=== PATIENT | female | born 1995 ===

== ENCOUNTER 2022-01-08 11:17 | Inpatient (IN) ==
[2022-01-08] MEDS ORDERED: Famotidine 20 MG/2 ML VIAL IVP PRN (13:33)
[2022-01-08] MEDS ORDERED: Azithromycin 500 MG in 0.9 % Sodium Chloride 250 ML IVPB PRN (13:33)
[2022-01-08] MEDS ORDERED: *HR* Nalbuphine 10 MG/ML AMPUL IV PRN (13:33)
[2022-01-08] MEDS ORDERED: Ondansetron 4 MG/2 ML VIAL IVP PRN (13:33)
[2022-01-08] MEDS ORDERED: Metoclopramide 10 MG/2 ML VIAL IVP PRN (13:33)
[2022-01-08] MEDS ORDERED: Naloxone 0.4 MG/ML INJ IVP PRN (13:33)
[2022-01-08] MEDS ORDERED: Penicillin G Potassium 5,000,000 UNIT in 0.9 % Sodium Chloride Mini Bag 100 ML IVPB ONE (13:36)
[2022-01-08] MEDS ORDERED: miSOPROStoL 25 MCG TABLET PO ONE (13:39)
[2022-01-08] MEDS: Ringers Solution, Lactated 1,000 ML IVC SCH ×2 (13:55→22:15)
[2022-01-08 14:36] LABS: Amphetamine Screen,Urine Negative ng/mL (Cutoff=1000); Barbiturate Screen,Urine Negative ng/mL (Cutoff=200); Benzodiazepines Screen,Urine Negative ng/mL (Cutoff=200); Cannabinoid Screen,Urine Negative ng/mL (Cutoff = 50); Cocaine Screen,Urine Negative ng/mL (Cutoff= 300); Opiate Screen,Urine Negative ng/mL (Cutoff=300); Phencyclidine Screen,Urine Negative ng/mL (Cutoff=25)
[2022-01-08 15:23] LABS: Basophils % 0.3 %; Eosinophils # 0.1 K/mcL (0.0-0.6); Eosinophils % 1.9 %; Hematocrit 38.1 % (35.3-44.9); Hemoglobin 12.4 g/dL (11.5-15.4); Immature Granulocytes % 0.4 % (0-4); Lymphocytes # 1.7 K/mcL (0.6-4.6); Lymphocytes % 22.7 %; Mean Corpuscular HGB Conc 32.5 g/dL (31.6-35.5); Mean Corpuscular Hemoglobin 29.2 pg (28.0-33.3); Mean Corpuscular Volume 89.6 fL (83.0-100.0); Mean Platelet Volume 12.3 fL (9.4-12.4); Monocytes # 0.4 K/mcL (0.0-1.3); Monocytes % 5.5 %; Neutrophils # 5.2 K/mcL (1.6-8.9); Platelet Count 223 K/mcL (140-400); Red Blood Count 4.25 M/mcL (3.82-4.97); Red Cell Distribution Width 14.4 % (11.5-14.5); Segmented Neutrophils % 69.2 %; White Blood Count 7.4 K/mcL (4.3-11.1)
[2022-01-08] MEDS ORDERED: EPHEDrine 50 MG/ML VIAL IVP PRN (15:27)
[2022-01-08] MEDS ORDERED: *HR* FentaNYL (PF) 100 MCG/2 ML VIAL EP ONE (15:27)
[2022-01-08] MEDS ORDERED: Ropivacaine/PF 0.2% 20 ML VIAL EP ONE (15:27)
[2022-01-08] MEDS ORDERED: Epidural Premix (fent/bupiv) 110 ML EP SCH (15:30)
[2022-01-08 16:12] LABS: Influenza A PCR Negative (Negative); Influenza B PCR Negative (Negative); Resp. Syncytial Virus PCR Negative (Negative)
[2022-01-08 16:36] LABS: SARS-CoV-2 by PCR (In House) Negative (Negative)
[2022-01-08] MEDS: Penicillin G Potassium 2,500,000 UNIT/105 ML MLS IVPB SCH ×2 (17:56→22:15)
[2022-01-08 18:08] LABS: Creatinine,Urine 112 mg/dL; Protein/Creatinine Ratio,Urine 0.28 mg/mg (0.00-0.20)
[2022-01-08 18:13] LABS: Alanine Aminotransferase 8 Units/L (7-52); Aspartate Amino Transferase 15 Units/L (13-39); BUN/Creatinine Ratio 15 (6-26); Blood Urea Nitrogen 9 mg/dL (6-20); Lactate Dehydrogenase 174 Units/L (140-271); Uric Acid 4.2 mg/dL (2.3-7.6); eGFR For African Americans > 60 (> 60); eGFR For Non-African Americans > 60 (> 60)
[2022-01-08] MEDS ORDERED: miSOPROStoL 25 MCG TABLET PO PRN (19:18)
[2022-01-09] MEDS ORDERED: Oxytocin 30 UNIT/503 ML BAG IVC ONE (00:03)
[2022-01-09] MEDS ORDERED: Oxytocin 30 UNIT/503 ML BAG IVC SCH ×2 (00:15→10:30)
[2022-01-09] MEDS: Penicillin G Potassium 2,500,000 UNIT/105 ML MLS IVPB SCH (02:34)
[2022-01-09] MEDS ORDERED: Ropivacaine/PF 0.2% 20 ML VIAL ONE (02:36)
[2022-01-09] MEDS ORDERED: *HR* FentaNYL (PF) 100 MCG/2 ML VIAL ONE (02:36)
[2022-01-09] MEDS ORDERED: Lidocaine -MPF 1% 5 ML AMPUL ONE (03:02)
[2022-01-09] MEDS: Ringers Solution, Lactated 1,000 ML IVC SCH (03:08)
[2022-01-09] MEDS ORDERED: *HR* HYDROmorphone PF 0.5 MG/0.5 ML SYRINGE IVP PRN (07:43)
[2022-01-09] MEDS ORDERED: *HR* Labetalol 20 MG/4 ML SYRINGE IVP PRN (07:43)
[2022-01-09] MEDS ORDERED: Ondansetron 4 MG/2 ML VIAL IVP PRN ×2 (07:43→10:30)
[2022-01-09] MEDS ORDERED: Ringers Solution, Lactated 1,000 ML IVC SCH (07:45)
[2022-01-09] MEDS: Acetaminophen 325 MG TABLET PO SCH ×2 (13:51→20:40)
[2022-01-09] MEDS: Ibuprofen 600 MG TABLET PO SCH ×2 (13:51→20:39)
[2022-01-09] MEDS: cephALEXin 500 MG CAPSULE PO SCH ×2 (16:02→20:40)
[2022-01-09] MEDS: *HR* OxyCODONE Immed Rel 5 MG TABLET PO PRN ×2 (16:17→21:35)
[2022-01-09] MEDS: Simethicone 80 MG TAB.CHEW PO PRN ×2 (17:11→22:45)
[2022-01-09] MEDS: metroNIDAZOLE 500 MG TABLET PO SCH (20:40)
[2022-01-10] MEDS: Acetaminophen 325 MG TABLET PO SCH ×2 (04:29→07:18)
[2022-01-10] MEDS: Ibuprofen 600 MG TABLET PO SCH ×2 (04:30→07:19)
[2022-01-10 05:04] LABS: Basophils % 0.3 %; Eosinophils # 0.1 K/mcL (0.0-0.6); Eosinophils % 0.8 %; Hematocrit 29.5 % (35.3-44.9); Immature Granulocytes % 0.3 % (0-4); Lymphocytes % 22.4 %; Mean Corpuscular HGB Conc 33.2 g/dL (31.6-35.5); Mean Corpuscular Hemoglobin 29.9 pg (28.0-33.3); Mean Corpuscular Volume 89.9 fL (83.0-100.0); Mean Platelet Volume 11.3 fL (9.4-12.4); Monocytes # 0.5 K/mcL (0.0-1.3); Monocytes % 5.8 %; Neutrophils # 6.4 K/mcL (1.6-8.9); Platelet Count 146 K/mcL (140-400); Red Blood Count 3.28 M/mcL (3.82-4.97); Red Cell Distribution Width 14.6 % (11.5-14.5); Segmented Neutrophils % 70.4 %; White Blood Count 9.1 K/mcL (4.3-11.1)
[2022-01-10 05:05] LABS: Hemoglobin 9.8 g/dL (11.5-15.4)
[2022-01-10 05:18] VITALS: O2SAT 98
[2022-01-10 07:11] VITALS: BP 105/57; PULSE 75; TEMP 98.3
[2022-01-10] MEDS: cephALEXin 500 MG CAPSULE PO SCH ×2 (07:18→08:32)
[2022-01-10] MEDS: metroNIDAZOLE 500 MG TABLET PO SCH ×2 (07:18→08:32)
[2022-01-10] MEDS: Prenatal Vit/FA 1 EACH TABLET PO SCH ×2 (07:18→08:33)
[2022-01-10] MEDS: *HR* OxyCODONE Immed Rel 5 MG TABLET PO PRN (13:16)
== END 2022-01-10 16:10 | disposition home or self-care (01) | DRG 540 ==
LOC: 1NENULAB 11:17 → 1NENUOBS 01-09 10:31
PROVIDERS: ADMIT Advanced Practice Midwife; ATTEND Advanced Practice Midwife